=== PATIENT | female | born 1955 | race Two or more races ===

== ENCOUNTER 2018-08-18 09:45 | Outpatient (AMBR) | payer BC, SELFPAY ==
--- NOTE | 2018-08-18 13:23 | PTNOTE_ITS ---
PT OP Initial Eval Patient Information Visit Reasons: knee Medical Diagnosis: M17.12 Treatment Dx #1: Start of Care: 08/18/18 Date of Onset: 2 yrs ago Initial Assessment Subjective Pt is 62 yr old female who c/o intense L knee pain x2 yrs. She reports difficulty with walking, squatting and prolonged standing. She rates the pain at 8-10/10 pain that limits sleeping tolerance. She was told she has bone on bone contact in the knee. PMH: hypothyroidism Imaging: X-ray in EMR, reviewed Pt goal: not sure if therapy will help. Objective L knee ArOM: Strength: Flexion: 90 deg 4-/5 Extension: -5 deg 4-/5 SLR: 20 deg Gait: antalgic with dec stance time on L TTP: medial joint line Observation: varus L knee mechanics Assessment Pt presentation consistent with X-ray reports that reveals advanced OA of L knee medial compartment. She has intense pain with WB and gait. ROM and knee strength are limited by pain and DJD. Pt not likely to benefit from skilled therapy or participate in PT interventions due to high tissue irritability and movement intolerance. Short Term and Prison Goals Eval and D/C Treatment Plan Eval and D/C Certification Dates: 08/18/18 to 09/17/18 Office Procedures PT Procedures PT Date of Service: 08/18/18 OP PT Eval Mod Complex 30 minutes: Yes
== END 2018-08-22 23:59 | disposition home or self-care (01) ==
PROVIDERS: PCP Physician Assistant; Referring Provider Physician Assistant; Visit Provider Orthopaedic Surgery
DX: M17.12 Unilateral primary osteoarthritis, left knee (principal); R26.2 Difficulty in walking, not elsewhere classified
CPT/HCPCS: 97162